=== PATIENT | female | born 1950 | race Caucasian/White ===

== ENCOUNTER 2020-04-19 09:14 | Inpatient (IN) | payer MEDICARE, SELFPAY ==
[2020-04-19] VITALS (9 sets, daily range): BP systolic 136–179; BP diastolic 72–99; PULSE 48–112; RESP 16–23; TEMP 36.1–36.8; O2SAT 96–98; BMI 31.6
--- NOTE | 2020-04-19 10:09 | ED.EXTPRO ---
HPI - Extremity Problem General Chief complaint: Extremity Problem,Nontraumatic Stated complaint: hit funny bone/hand not working Time Seen by Provider: 04/19/20 09:59 Source: patient Mode of arrival: Family Vehicle Limitations: no limitations History of Present Illness HPI Narrative: Patient is a 69-year-old female who has noticed some tingling in her left hand which started last evening. She says it feels like she hit her funny bone but she did not hit her funny bone and she had some tingling on left side of her face last night as well. This morning it remains. She has also noticed that she cannot hold small objects in her hand but she does have good strength. She denies any other weakness. She says that she may have a history of mini strokes in her 20s that that was thought to be due to control. Related Data Home Medications Medication Instructions Recorded Confirmed atorvastatin 20 mg PO BEDTIME 04/19/20 04/19/20 losartan 50 mg PO BID 04/19/20 04/19/20 Allergies Allergy/AdvReac Type Severity Reaction Status Date / Time lisinopril [LISINOPRIL] AdvReac Mild COUGH Verified 04/19/20 09:30 Review of Systems Review of Systems Narrative: GENERAL: Denies chills, fatigue, malaise, fever, sweats, travel HEENT: Denies sinus pain, ear pain, sore throat, difficulty swallowing, neck pain RESPIRATORY: Denies dyspnea, cough, wheezing, hemoptysis, sputum. CARDIOVASCULAR: Denies chest pain, palpitations, orthopnea, edema GASTROINTESTINAL: Denies nausea, vomiting, abdominal pain, diarrhea, constipation, melena. : Denies dysuria, frequency, incontinence, hematuria, urinary retention, flank pain. MUSCULOSKELETAL: Denies weakness, joint pain, or bony pain SKIN: No rash, no erythema, no pruritus NEUROLOGIC: See HPI PSYCHIATRIC: No concerning psychosocial issues. 12 point review of systems is negative except for those stated above and HPI Patient History Medical History Foot drop, left foot (Acute) Surgical History Hx of appendectomy (Acute) Social History household members: spouse Smoking Status: Never smoker Smoking Status: Never smoker alcohol intake frequency: a few times a week Alcohol type: beer and wine Substance Use Type: does not use Exam Initial Vital Signs Initial Vital Signs: Vital Signs Temperature 98.3 F 04/19/20 09:25 Pulse Rate 61 04/19/20 09:25 Respiratory Rate 18 04/19/20 09:25 Blood Pressure 179/83 H 04/19/20 09:25 Pulse Oximetry 97 04/19/20 09:25 GENERAL: Well-appearing, well-nourished and in no acute distress. HEENT: Head atraumatic,EOMI, pupils reactive, face symmetric, moist mucous membranes CARDIOVASCULAR: Regular rate and rhythm without murmurs, rubs or gallops. RESPIRATORY: Breath sounds equal bilaterally, no wheezes rales or rhonchi. ABDOMEN: Soft, nontender. Normoactive bowel sounds all 4 quadrants. No guarding or rebound. EXTREMITIES: Normal range of motion, no clubbing or edema. Neurovascularly intact NEUROLOGICAL: Alert and oriented x4.Normal gait and speech. Cranial nerves II through XII grossly intact. Good [id number], good [id number], strength equal bilaterally, no dysarthria or aphasia, sensation in tact to soft touch bilaterally, no visual changes, no facial droop she is unable to hold a pen appropriately in her left hand. 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 Scores NIH Stroke Scale Level of Conciousness: Alert, keenly responsive Ask month/age: Answers both questions correctly. Open/close eyes, close hand: Performs both tasks correctly Best gaze horizontal: Normal Visual mccormick: No visual loss Facial palsy: Normal symetrical movement Left arm drift: No drift for full 10 sec Right arm drift: No drift for full 10 sec Left leg drift: No drift for full 10 sec Right leg drift: No drift for full 10 sec Limb ataxia: Absent Sensory on face/arms/legs: Normal, no sensory loss Best language: No aphasia, normal Dysarthria: Normal Extinction or inattention: No abnormality Total NIH Stroke scale score: 0 Course Orders Ordered: ED Orders 04/19/20 10:07 EKG-12 Lead Stat 04/19/20 10:15 CT head/brain wo con Stat 04/19/20 10:37 Complete Blood Count AUTO DIFF Stat Comprehensive Metabolic Panel Stat Partial Thromboplastin Time Stat Prothrombin Time INR Stat TSH w/ Reflex to FT4 Stat Troponin & CK Cardiac Panel Stat 04/19/20 11:02 EKG-12 Lead Stat 04/19/20 11:19 Urinalysis and Microscopic Stat 04/19/20 11:50 Urine Drug Screen, Rapid Stat 04/19/20 12:48 Consult to Discharge Planning Routine Consult to Occupational Therapy Evaluate & Treat Consult to Physical Therapy Evaluate & Treat Consult to Speech Therapy Evaluate & Treat MR stroke Stat Education, smoking cessation ONGOING 04/20/20 05:00 Hemoglobin A1C% w Est Avg Glu Routine Lipid Panel Routine Acetaminophen (Tylenol) 650 mg PO Q6HR PRN PRN Reason: Fever Apixaban (Eliquis) 5 mg PO BID EARL Atorvastatin Calcium (Lipitor) 40 mg PO BEDTIME EARL Sodium Chloride (Normal Saline 0.9%) 1,000 mls @ 150 mls/hr IV CONT EARL Last Infusion: 04/19/20 12:15 Dose: 0 mls/hr Documented by: Admin: 04/19/20 10:48 Dose: 150 mls/hr Documented by: JAVIER Discontinued Medications Aspirin (Aspirin Chew) 324 mg PO NOW ONE Stop: 04/19/20 10:58 Last Admin: 04/19/20 11:02 Dose: 324 mg Documented by: CONSTANTINEONETessa Vital Signs Vital signs: Vital Signs - 8 hr 04/19/20 09:25 04/19/20 11:00 04/19/20 11:23 Temperature 98.3 F Pulse Rate 61 112 H 48 L Respiratory Rate 18 19 20 Blood Pressure 179/83 H 177/78 H Pulse Oximetry 97 97 97 04/19/20 11:31 Temperature Pulse Rate 55 L Respiratory Rate 23 Blood Pressure 162/76 H Pulse Oximetry 97 MDM - Extremity (Nontraumatic) Lab Data Result diagrams: 04/19/20 10:37 04/19/20 10:37 Labs: Lab Results 04/19/20 04/19/20 04/19/20 Range/Units 10:37 10:37 10:37 WBC 7.5 (4.5-11.0) X10^3/uL RBC 4.57 (4.0-5.2) X10^6/uL Hgb 13.3 (12.0-16.0) g/dL Hct 40.3 (36-46) % MCV 88.3 (80-100) fL MCH 29.0 (26-34) PG MCHC 32.9 (30-36) % RDW 14.2 (11.6-14.8) % Plt Count 186 (150-400) X10^3/uL Neut % (Auto) 62.9 (50-75) % Lymph % (Auto) 27.4 (25-40) % Hickman % (Auto) 7.7 (3-14) % Eos % (Auto) 1.2 L (2-4) % Baso % (Auto) 0.8 (0-2) % Neut # (Auto) 4800 (0504-4636) /uL Lymph # (Auto) 2100 (1467-2123) /uL Hickman # (Auto) 600 (0-900) /uL Eos # (Auto) 100 (0-450) /uL Baso # (Auto) 100 (0-100) /uL PT 10.6 (10.1-12.7) SECONDS INR 0.9 (0.9-1.3) APTT 29 (26.4-36.2) SECONDS Sodium 139 (137-145) mmol/L Potassium 4.7 (3.4-5.1) mmol/L Chloride 109 H (98-107) mmol/L Carbon Dioxide 26 (22-32) mmol/L BUN 25 H (7-17) mg/dL Creatinine 0.90 (0.52-1.04) mg/dL Estimated GFR > 60.0 (>60) mL/min BUN/Creatinine Ratio 27.8 H (6-22) Glucose 98 (80-110) mg/dL Calcium 9.6 (8.4-10.2) mg/dL Total Bilirubin 0.3 (0.2-1.3) mg/dL AST 41 H (14-36) IU/L ALT 58 H (<35) IU/L Alkaline Phosphatase 74 (38-126) U/L Total Creatine Kinase 160 H (30-135) U/L CK-MB (CK-2) 3.55 H (<2.37) ng/mL CK-MB (CK-2) Rel Index 2.2 (1.5-5.0) % Troponin I < 0.012 (0.01-0.034) ng/mL Total Protein 6.9 (6.3-8.2) g/dL Albumin 4.1 (3.5-5.0) g/dL Globulin 2.8 (1.7-4.1) g/dL Albumin/Globulin Ratio 1.5 (1.0-2.8) TSH (0.47-4.68) uIU/mL Free T4 (0.78-2.19) ng/dL Urine Color Urine Appearance Urine pH (4.5-8.0) Ur Specific [place] (1.000-1.035) Urine Protein (Negative) Urine Glucose (UA) (Negative) g/dL Urine Ketones (NEGATIVE) Urine Occult Blood (Negative) Urine Nitrate (Negative) Urine Bilirubin (NEGATIVE) Urine Urobilinogen (0.2) E.U./dL Ur Leukocyte Esterase (NEGATIVE) Urine RBC (0-5/HPF) Urine WBC (0-5/HPF) Ur Squamous Epith Cells (0-5/HPF) Urine Bacteria (None) Ur Culture Indicated? 04/19/20 04/19/20 Range/Units 10:37 11:19 WBC (4.5-11.0) X10^3/uL RBC (4.0-5.2) X10^6/uL Hgb (12.0-16.0) g/dL Hct (36-46) % MCV (80-100) fL MCH (26-34) PG MCHC (30-36) % RDW (11.6-14.8) % Plt Count (150-400) X10^3/uL Neut % (Auto) (50-75) % Lymph % (Auto) (25-40) % Hickman % (Auto) (3-14) % Eos % (Auto) (2-4) % Baso % (Auto) (0-2) % Neut # (Auto) (0613-1664) /uL Lymph # (Auto) (6121-3297) /uL Hickman # (Auto) (0-900) /uL Eos # (Auto) (0-450) /uL Baso # (Auto) (0-100) /uL PT (10.1-12.7) SECONDS INR (0.9-1.3) APTT (26.4-36.2) SECONDS Sodium (137-145) mmol/L Potassium (3.4-5.1) mmol/L Chloride (98-107) mmol/L Carbon Dioxide (22-32) mmol/L BUN (7-17) mg/dL Creatinine (0.52-1.04) mg/dL Estimated GFR (>60) mL/min BUN/Creatinine Ratio (6-22) Glucose (80-110) mg/dL Calcium (8.4-10.2) mg/dL Total Bilirubin (0.2-1.3) mg/dL AST (14-36) IU/L ALT (<35) IU/L Alkaline Phosphatase (38-126) U/L Total Creatine Kinase (30-135) U/L CK-MB (CK-2) (<2.37) ng/mL CK-MB (CK-2) Rel Index (1.5-5.0) % Troponin I (0.01-0.034) ng/mL Total Protein (6.3-8.2) g/dL Albumin (3.5-5.0) g/dL Globulin (1.7-4.1) g/dL Albumin/Globulin Ratio (1.0-2.8) TSH 0.41 L (0.47-4.68) uIU/mL Free T4 0.80 (0.78-2.19) ng/dL Urine Color Straw Urine Appearance Clear Urine pH 6.5 (4.5-8.0) Ur Specific [place] <=1.005 (1.000-1.035) Urine Protein Negative (Negative) Urine Glucose (UA) Negative (Negative) g/dL Urine Ketones Negative (NEGATIVE) Urine Occult Blood Negative (Negative) Urine Nitrate Negative (Negative) Urine Bilirubin Negative (NEGATIVE) Urine Urobilinogen 0.2 (0.2) E.U./dL Ur Leukocyte Esterase Negative (NEGATIVE) Urine RBC 0-1/hpf (0-5/HPF) Urine WBC 0-1/hpf (0-5/HPF) Ur Squamous Epith Cells 0-1 /hpf (0-5/HPF) Urine Bacteria Few (2-10) H (None) Ur Culture Indicated? Cult not indicated Imaging Data CT scan - head: Radiologist's Impression: PROCEDURE: CT HEAD/BRAIN WO CON INDICATIONS: left hand weakness TECHNIQUE: Noncontrast 4.5 mm thick angled axial sections acquired from the foramen magnum to the vertex, with coronal and sagittal reformats. For radiation dose reduction, the following was used: automated exposure control, adjustment of mA and/or kV according to patient size. COMPARISON: None. FINDINGS: Image quality: Diagnostic. CSF spaces: Basal cisterns are patent. No extra-axial fluid collections. Ventricles are normal in size and shape. Brain: No midline shift. No intracranial masses or hemorrhage. Marley-white matter interface is normal. There are areas of low-attenuation within the periventricular white matter of the supratentorial brain. Skull and face: Calvarium and visualized facial bones are intact, without suspicious lesions. Sinuses: Mild mucosal thickening involving the left maxillary sinus is present. Otherwise, the imaged paranasal sinuses and mastoid air cells are clear. IMPRESSION: 1. No acute intracranial hemorrhage. 2. Mild white matter changes are more prominent on the right. The need for better characterisation utilizing MRI may be determined clinically. Dictated by: Deny Schreiber M.D. on 04/19/2020 at 9:29 Approved by: Deny Schreiber M.D. on 04/19/2020 at 9:30 ECG Data Attestation EKG: I personally reviewed and interpreted this ECG as follows: Prior ECG tracings: not available for review Interpretation: EKG 1. Normal sinus rhythm rate 57 p.r. interval 178 QRS [address] changes EKG 2. Atrial fibrillation rate 127 MDM Narrative Medical decision making narrative: The patient initially was normal sinus rhythm but suddenly went into AFib while in the emergency department. He is completely asymptomatic. She does have obvious weakness of that left hand. I suspect that patient did have a stroke last evening. She does not meet tPA criteria she is out of the window, she has no large vessel occlusion signs. At this point patient is given aspirin and will be admitted Dr. scales updated on the patient's symptoms and test results agrees with observation Discharge Plan Departure Patient Disposition: Admitted as Observation Clinical Impression: CVA (cerebral vascular accident) Qualifiers: CVA mechanism: unspecified Qualified Code(s): I63.9 - Cerebral infarction, unspecified Atrial fibrillation Qualifiers: Atrial fibrillation type: unspecified Qualified Code(s): I48.91 - Unspecified atrial fibrillation Discharge Date/Time: 04/19/20 12:14 Admit Date/Time: 04/19/20 11:33 Admit Provider: Marjorie Kelly
--- NOTE | 2020-04-19 10:15 | DI.CT.S_ITS ---
PROCEDURE: CT HEAD/BRAIN WO CON INDICATIONS: left hand weakness TECHNIQUE: Noncontrast 4.5 mm thick angled axial sections acquired from the foramen magnum to the vertex, with coronal and sagittal reformats. For radiation dose reduction, the following was used: automated exposure control, adjustment of mA and/or kV according to patient size. COMPARISON: None. FINDINGS: Image quality: Diagnostic. CSF spaces: Basal cisterns are patent. No extra-axial fluid collections. Ventricles are normal in size and shape. Brain: No midline shift. No intracranial masses or hemorrhage. Marley-white matter interface is normal. There are areas of low-attenuation within the periventricular white matter of the supratentorial brain. Skull and face: Calvarium and visualized facial bones are intact, without suspicious lesions. Sinuses: Mild mucosal thickening involving the left maxillary sinus is present. Otherwise, the imaged paranasal sinuses and mastoid air cells are clear. IMPRESSION: 1. No acute intracranial hemorrhage. 2. Mild white matter changes are more prominent on the right. The need for better characterisation utilizing MRI may be determined clinically. Dictated by: Deny Schreiber M.D. on 04/19/2020 at 9:29 Approved by: Deny Schreiber M.D. on 04/19/2020 at 9:30
[2020-04-19 10:46] LABS: Add Manual Diff / Slide Review NO; Basophils Absolute Auto 100 /uL (0-100); Basophils Percent Auto 0.8 % (0-2); Eosinophils Absolute Auto 100 /uL (0-450); Eosinophils Percent Auto 1.2 % (2-4); Hematocrit 40.3 % (36-46); Hemoglobin 13.3 g/dL (12.0-16.0); Lymphocytes Absolute Auto 2100 /uL (1100-4500); Lymphocytes Percent Auto 27.4 % (25-40); Mean Corpuscular HGB Conc 32.9 % (30-36); Mean Corpuscular Volume 88.3 fL (80-100); Monocytes Absolute Auto 600 /uL (0-900); Monocytes Percent Auto 7.7 % (3-14); Neutrophils Absolute Auto 4800 /uL (1500-7000); Neutrophils Percent Auto 62.9 % (50-75); Platelet Count 186 X10^3/uL (150-400); Red Blood Cell Count 4.57 X10^6/uL (4.0-5.2); Red Cell Distribution Width 14.2 % (11.6-14.8); White Blood Cell Count 7.5 X10^3/uL (4.5-11.0)
[2020-04-19] MEDS: SODIUM CHLORIDE 0.9% 1,000 ML 150 ML IV (10:48)
[2020-04-19 10:53] LABS: INR 0.9 (0.9-1.3); Prothrombin Time 10.6 SECONDS (10.1-12.7)
[2020-04-19 10:56] LABS: PTT Partial Thromboplastin Tim 29 SECONDS (26.4-36.2)
[2020-04-19 10:57] LABS: Alanine Aminotransferase 58 IU/L (<35); Albumin 4.1 g/dL (3.5-5.0); Albumin Globulin Ratio 1.5 (1.0-2.8); Alkaline Phosphatase 74 U/L (38-126); Aspartate Aminotransferase 41 IU/L (14-36); BUN Creatinine Ratio 27.8 (6-22); Bilirubin Total 0.3 mg/dL (0.2-1.3); Blood Urea Nitrogen 25 mg/dL (7-17); Calcium 9.6 mg/dL (8.4-10.2); Carbon Dioxide 26 mmol/L (22-32); Chloride 109 mmol/L (98-107); Creatine Kinase 160 U/L (30-135); Estimated Glomerular Filt Rate > 60.0 mL/min (>60); Globulin 2.8 g/dL (1.7-4.1); Glucose 98 mg/dL (80-110); Potassium 4.7 mmol/L (3.4-5.1); Sodium 139 mmol/L (137-145); Total Protein 6.9 g/dL (6.3-8.2)
--- NOTE | 2020-04-19 11:01 | PC.NURSE ---
pt rhythm changed from SR to afib. Dr. Martinez aware and repeat EKG done
[2020-04-19] MEDS: ASPIRIN 81 MG CHEW TAB 324 MG PO (11:02)
[2020-04-19 11:09] LABS: Troponin I < 0.012 ng/mL (0.01-0.034)
[2020-04-19 11:13] LABS: CKMB % Relative Index 2.2 % (1.5-5.0); Creatine Kinase MB 3.55 ng/mL (<2.37); HEMOLYSIS 17 (0-50)
[2020-04-19 11:48] LABS: Appearance Urine UA CLEAR; Bilirubin Urine UA NEGATIVE (NEGATIVE); Glucose Urine UA NEGATIVE (Negative); Ketones Urine UA NEGATIVE (NEGATIVE); Leukocyte Esterase Urine UA NEGATIVE (NEGATIVE); Nitrite Urine UA NEGATIVE (Negative); Occult Blood Urine UA NEGATIVE (Negative); Protein Urine UA NEGATIVE (Negative); Specific Gravity Urine UA <=1.005 (1.000-1.035); Urobilinogen Urine UA 0.2 E.U./dL (0.2)
[2020-04-19 11:50] LABS: pH Urine UA 6.5 (4.5-8.0)
[2020-04-19 11:59] LABS: Bacteria Urine Few (2-10); Color Urine UA Straw; Culture Indicated Urine Cult Not Indicated; RBC Urine 0-1/HPF (0-5/HPF); Squamous Epithelial Cell Urine 0-1 /HPF (0-5/HPF); WBC Urine 0-1/HPF (0-5/HPF)
[2020-04-19 12:05] LABS: UR Morphine/Opiate cutoff 300 Negative (Negative); Ur Creatinine Normal (Normal); Ur Specific Gravity Normal (Normal); Urine Amphetamines Negative (Negative); Urine Barbiturates Negative (Negative); Urine Benzodiazepines Negative (Negative); Urine Cocaine Negative (Negative); Urine MDMA Negative (Negative); Urine Methadone Negative (Negative); Urine Methamphetamines Negative (Negative); Urine Oxycodone Negative (Negative); Urine Phencyclidine Negative (Negative); Urine Tetrahydrocannabinol Negative (Negative); Urine Tricyclic Antidepressant Negative (Negative); Urine pH Normal (Normal)
--- NOTE | 2020-04-19 12:48 | DI.MRI.S_ITS ---
PROCEDURE: MR STROKE Pre- and post-contrast brain MRI, non-contrast brain MR angiogram, pre- and postcontrast neck MR angiogram INDICATIONS: Left sided deficit, CVA TECHNIQUE: Brain: Noncontrast axial T1 spin echo, axial T2 fast spin echo, sagittal and axial FLAIR, coronal T2 fast spin echo, axial gradient echo, axial diffusion and ADC through the brain. After the administration of contrast, axial 3D VIBE of the cranial vasculature and brain. Brain MRA: Non-contrast 3-D time of flight MR angiogram, with multiple vchehhg-hflbnqsuh-pjlzfojcdm (MIP) reformats performed. Neck MRA: Axial and sagittal TruFISP through the neck. Coronal dynamic MR angiogram during administration of contrast in the arterial and venous phases, with 3-dimenstional sfzuogm-jinqjbipq-bxkcchjmai (MIP) reformats constructed from subtraction images. COMPARISON: None. FINDINGS: Image quality: Degraded by patient motion artifact. BRAIN: CSF spaces: Ventricles are normal in size and shape. Basal cisterns are patent. No extra-axial fluid collections. Brain: No intracranial bleeds or mass effects. Marley-white matter interface is normal. There is mild, diffuse cerebral volume loss. There are moderate periventricular, subcortical and subinsular white matter chronic microvascular ischemic changes. Cluster of small foci of restricted diffusion noted in the posterior right frontal lobe compatible with acute lacunar infarcts. Brainstem appears normal. Normal intravascular flow voids are present. No abnormal intracranial enhancement. Skull and face: Calvarial marrow signal is normal. Orbits appear normal. Sinuses: Mild mucosal thickening noted in the left maxillary sinus. The mastoids are clear. BRAIN MR ANGIOGRAM: Anterior circulation: Intracranial internal carotid arteries are normal in size and enhancement. The flow within the paired anterior cerebral arteries is normal and symmetric. The flow within the middle cerebral arteries is normal and symmetric. The anterior communicating artery is seen. No stenoses, occlusions, or aneurysms. Posterior circulation: The visualized portions of the vertebral arteries demonstrate normal caliber, and join to form a normal appearing basilar artery. The flow within the posterior cerebral arteries is normal and symmetric. No stenoses, occlusions, or aneurysms. NECK MR ANGIOGRAM: Carotids: Great vessels demonstrate a conventional anatomy as they arise from the aortic arch. The origins of the common carotid arteries appear patent. The calibers and courses of both common carotid arteries are normal. The bifurcation regions appear normal bilaterally. The internal carotid arteries demonstrate normal course and caliber. Posterior circulation: The origins of the vertebral arteries appear patent. More superior portions of both vertebral arteries demonstrate normal course and caliber, and join to form a normal appearing basilar artery. Miscellaneous: Subclavian arteries appear patent. Pre-contrast images through the neck show no soft tissue abnormalities. IMPRESSION: BRAIN MRI: 1. Small cluster of acute lacunar infarcts in the posterior right frontal lobe. 2. No abnormal intracranial mass or mass effect. 3. No suspicious postcontrast enhancement. 4. No intracranial hemorrhage. 5. Mild, diffuse cerebral volume loss. 6. Moderate periventricular, subcortical and subinsular white matter chronic microvascular ischemic change. BRAIN MR ANGIOGRAM: Negative examination. NECK MR ANGIOGRAM: Negative examination. Dictated by: Emelyn Chang MD, PhD on 04/19/2020 at 16:01 Approved by: Emelyn Chang MD, PhD on 04/19/2020 at 16:09
--- NOTE | 2020-04-19 13:23 | SLP.IPNOTE ---
ORDER CONTROL CLERK BLOOD BANK entered the room at 1:15 to assess pt's swallow, speech, and cognition. Pt was sitting upright in bed and had just gotten off the phone. Pt's speech and oral muscular structure appear WNL at this time. No face droop or slurring of speech noted. Pt was 100% intelligible at the conversational level. ORDER CONTROL CLERK BLOOD BANK gave the pt thin liquids and regular, dry texture solids. Pt did not show any overt s/sx of aspiration. No wet/gurgly voice noted, no immediate or delayed cough/throat clearing. Pt reported she did not feel her speech or swallowing abilities were impacted. Pt was able to recall locations and answer all questions appropriately. Continued ST services are not recommended as there is no impact on the pt's speech, swallowing, or cognition at this time. If there are any changes that do occur, further assessment may be warranted. Pt did not have any further questions or concerns for the ORDER CONTROL CLERK BLOOD BANK. Shyla Perez M.A., [facility]-ORDER CONTROL CLERK BLOOD BANK
[2020-04-19 13:33] LABS: COVID19 -Nasal RAPID Negative (Negative)
[2020-04-19 13:37] LABS: TSH w/ Reflex to FT4 0.41 uIU/mL (0.47-4.68)
--- NOTE | 2020-04-19 15:34 | PC.NURSE ---
Addendum entered by Cristy Ho R.N. 04/19/20 15:36: pt left room for MRI at 1500. No bedside report. Original Note: AM shift. pt AO and receptive to care. Arrived from ER at 1230. SBA to BR. Right AC infusing NS at 150/hr. Tele- sinus henrietta and afib, no history of afib. Speech cleared patient at 1300. MRI and labs ordered. COVID test completed in ER before transfer. When I called lab at 1330 for results, lab did not cone picker.
--- NOTE | 2020-04-19 16:55 | PM.HP.1 ---
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 The patient reports that yesterday evening she thought she hit her elbow on the table and her funny bone causing numbness and tingling of her left arm and hand. She then noticed her left face also had numbness and tingling with slurring of words which she compares to receiving Novocain at the dentist. The numbness and tingling of her face quickly resolved. She she reports that she then went to bed hoping that this would go away overnight. She awoke with persistent numbness and tingling of left arm and hand with decreased machine assembler supervisor strength. She has no persistent numbness or tingling of her face or slurred speech. She has no other symptoms and denies headache, chest pain, shortness of breath, nausea, vomiting, fever, chills, dysuria, diarrhea or constipation. She is visiting from [place] and drove here with her and RV. She denies any lower extremity swelling or pain. In the emergency department, the patient went to atrial fibrillation for which she endorses occasional fluttering in her chest especially when she drinks wine to the extent that she has cut back and will only have 1 glass at a time. She has no history of atrial fibrillation and is not on blood thinner. She is admitted observation for acute stroke. Patient History Medical History Foot drop, left foot (Acute) Hyperlipidemia (Acute) Hypertension (Acute) Surgical History Hx of appendectomy (Acute) Family & Social History Family History Mother Colon cancer Father Stroke Social History: household members spouse Prior Living Arrangements RV Safety & Behavioral: Feels Safe in Current Yes Environment Been Physically Hurt or No Threatened By a Person Suicidal Ideation Description None Suicide Plan Description No Plan Tobacco & Substance use: Smoking Status Never smoker alcohol intake frequency 1 glass of wine or 1 beer a few times a week Substance Use Type Does not use Meds Home Medications and Allergies Home Medications Medication Instructions Recorded Confirmed Type atorvastatin 20 mg PO BEDTIME 04/19/20 04/19/20 History losartan 50 mg PO BID 04/19/20 04/19/20 History Allergies Allergy/AdvReac Type Severity Reaction Status Date / Time lisinopril [LISINOPRIL] AdvReac Mild COUGH Verified 04/19/20 09:30 Review of Systems Review of Systems Narrative: A 10 system comprehensive review of systems was conducted with the patient and found to be negative except as above in the History of Present Illness. Exam Vital Signs (past 8 hours): - 04/19/20 09:25 04/19/20 11:00 04/19/20 11:23 Temperature 98.3 F Pulse Rate 61 112 H 48 L Respiratory Rate 18 19 20 Blood Pressure 179/83 H 177/78 H Pulse Oximetry 97 97 97 04/19/20 11:31 04/19/20 11:58 04/19/20 12:00 Temperature Pulse Rate 55 L 53 L 51 L Respiratory Rate 23 23 17 Blood Pressure 162/76 H 176/74 H 158/72 H Pulse Oximetry 97 98 96 04/19/20 16:00 Temperature 98.0 F Pulse Rate 61 Respiratory Rate 18 Blood Pressure 146/99 H Pulse Oximetry 97 Oxygen Delivery Method Room Air Narrative Exam Narrative: General: Older female sitting in bed and in no acute distress, well-developed, well-nourished, appropriately interactive. HEENT: Normocephalic, atraumatic. External ears without defect. Pupils equal, round, and reactive to light. Anicteric sclerae, moist conjunctivae, and no lid lag. Oropharynx free of erythema and cobble stoning with moist mucosa. Neck: Supple with full range of motion. No jugular venous distension. No bruits. No lymphadenopathy or thyromegaly. Cardiovascular: Irregularly irregular without murmurs, rubs, or gallops appreciated. Pulmonary: Clear to auscultation bilaterally without crackles, wheezes, or rhonchi. Normal respiratory effort with no use of accessory muscles. Abdomen: Soft, bowel sounds present, nontender, nondistended. No hepatosplenomegaly or masses appreciated. Extremities: No clubbing, cyanosis, or edema. Skin: Normal temperature, turgor, and texture; no rash, ulcers, or subcutaneous nodules appreciated. Neurological: Cranial nerves grossly intact. Normal muscle strength, tone, and bulk in all 4 extremities +4/5. Left machine assembler supervisor decreased and dexterity impaired. Reflexes, coordination, and sensory function within normal limits. Normal cerebellar function with [id number] and [id number]. No known gait impairment. Psychiatric: Normal mood and affect. Alert and oriented to person, place, and time. Objective Labs Result Diagrams: 04/19/20 10:37 04/19/20 10:37 Labs: Laboratory Results - last 24 hr 04/19/20 04/19/20 04/19/20 10:37 10:37 10:37 WBC 7.5 RBC 4.57 Hgb 13.3 Hct 40.3 MCV 88.3 MCH 29.0 MCHC 32.9 RDW 14.2 Plt Count 186 Neut % (Auto) 62.9 Lymph % (Auto) 27.4 Hubbard % (Auto) 7.7 Eos % (Auto) 1.2 L Baso % (Auto) 0.8 Neut # (Auto) 4800 Lymph # (Auto) 2100 Hubbard # (Auto) 600 Eos # (Auto) 100 Baso # (Auto) 100 PT 10.6 INR 0.9 APTT 29 Sodium 139 Potassium 4.7 Chloride 109 H Carbon Dioxide 26 BUN 25 H Creatinine 0.90 Estimated GFR > 60.0 BUN/Creatinine Ratio 27.8 H Glucose 98 Calcium 9.6 Total Bilirubin 0.3 AST 41 H ALT 58 H Alkaline Phosphatase 74 Total Creatine Kinase 160 H CK-MB (CK-2) 3.55 H CK-MB (CK-2) Rel Index 2.2 Troponin I < 0.012 Total Protein 6.9 Albumin 4.1 Globulin 2.8 Albumin/Globulin Ratio 1.5 TSH Free T4 Urine Color Urine Appearance Urine pH Ur Specific Sewell Urine Protein Urine Glucose (UA) Urine Ketones Urine Occult Blood Urine Nitrate Urine Bilirubin Urine Urobilinogen Ur Leukocyte Esterase Urine RBC Urine WBC Ur Squamous Epith Cells Urine Bacteria Ur Culture Indicated? U Opiates 300ng/mL cut Ur Oxycodone Screen Urine Methadone Screen Ur Barbiturates Screen U Tricyclic Antidepress Ur Phencyclidine Scrn Ur Amphetamines Screen U Methamphetamines Scrn Ur MDMA Scrn (Ecstasy) U Benzodiazepines Scrn Urine Cocaine Screen U Marijuana (THC) Screen COVID-19 PCR 04/19/20 04/19/20 04/19/20 10:37 11:19 11:50 WBC RBC Hgb Hct MCV MCH MCHC RDW Plt Count Neut % (Auto) Lymph % (Auto) Hubbard % (Auto) Eos % (Auto) Baso % (Auto) Neut # (Auto) Lymph # (Auto) Hubbard # (Auto) Eos # (Auto) Baso # (Auto) PT INR APTT Sodium Potassium Chloride Carbon Dioxide BUN Creatinine Estimated GFR BUN/Creatinine Ratio Glucose Calcium Total Bilirubin AST ALT Alkaline Phosphatase Total Creatine Kinase CK-MB (CK-2) CK-MB (CK-2) Rel Index Troponin I Total Protein Albumin Globulin Albumin/Globulin Ratio TSH 0.41 L Free T4 0.80 Urine Color Straw Urine Appearance Clear Urine pH 6.5 Ur Specific Sewell <=1.005 Urine Protein Negative Urine Glucose (UA) Negative Urine Ketones Negative Urine Occult Blood Negative Urine Nitrate Negative Urine Bilirubin Negative Urine Urobilinogen 0.2 Ur Leukocyte Esterase Negative Urine RBC 0-1/hpf Urine WBC 0-1/hpf Ur Squamous Epith Cells 0-1 /hpf Urine Bacteria Few (2-10) H Ur Culture Indicated? Cult not indicated U Opiates 300ng/mL cut Negative Ur Oxycodone Screen Negative Urine Methadone Screen Negative Ur Barbiturates Screen Negative U Tricyclic Antidepress Negative Ur Phencyclidine Scrn Negative Ur Amphetamines Screen Negative U Methamphetamines Scrn Negative Ur MDMA Scrn (Ecstasy) Negative U Benzodiazepines Scrn Negative Urine Cocaine Screen Negative U Marijuana (THC) Screen Negative COVID-19 PCR 04/19/20 12:20 WBC RBC Hgb Hct MCV MCH MCHC RDW Plt Count Neut % (Auto) Lymph % (Auto) Hubbard % (Auto) Eos % (Auto) Baso % (Auto) Neut # (Auto) Lymph # (Auto) Hubbard # (Auto) Eos # (Auto) Baso # (Auto) PT INR APTT Sodium Potassium Chloride Carbon Dioxide BUN Creatinine Estimated GFR BUN/Creatinine Ratio Glucose Calcium Total Bilirubin AST ALT Alkaline Phosphatase Total Creatine Kinase CK-MB (CK-2) CK-MB (CK-2) Rel Index Troponin I Total Protein Albumin Globulin Albumin/Globulin Ratio TSH Free T4 Urine Color Urine Appearance Urine pH Ur Specific Sewell Urine Protein Urine Glucose (UA) Urine Ketones Urine Occult Blood Urine Nitrate Urine Bilirubin Urine Urobilinogen Ur Leukocyte Esterase Urine RBC Urine WBC Ur Squamous Epith Cells Urine Bacteria Ur Culture Indicated? U Opiates 300ng/mL cut Ur Oxycodone Screen Urine Methadone Screen Ur Barbiturates Screen U Tricyclic Antidepress Ur Phencyclidine Scrn Ur Amphetamines Screen U Methamphetamines Scrn Ur MDMA Scrn (Ecstasy) U Benzodiazepines Scrn Urine Cocaine Screen U Marijuana (THC) Screen COVID-19 PCR Negative Assessment & Plan Assessment & Plan narrative: Amira Shukla is a 69-year-old female with a past medical history significant for hypertension, hyperlipidemia and left footdrop who presented to the ED with numbness and tingling of left hand and decreased machine assembler supervisor strength. 1. Acute CVA, present on admission. Active. -Patient presented with persistent left arm and hand paresthesia numbness and tingling with decreased machine assembler supervisor strength. Patient has remote history 40+ years ago of left footdrop from unknown cause but possibly CVA. -Cardiovascular risk factors include: hypertension, hyperlipidemia and family history. -NIH score 0. Continue to monitor neurological status frequently. -Initial EKG demonstrated sinus rhythm/bradycardia and repeat EKG demonstrated atrial fibrillation without acute ischemic changes has as ST elevation or depression. Continue to monitor closely on telemetry. Patient is currently back in sinus rhythm. -Allow for permissive hypertension x 24 hours to optimize cerebral perfusion. Plan to restart home antihypertensive with losartan 50 mg twice daily tomorrow. Ordered labetalol 10 mg IV every 4 hours for SBP > 220 mmHg or DBP > 110 mm Hg. -CT brain without contrast did not demonstrate noted acute intracranial hemorrhage. Noted, mild white matter changes are more prominent on the right. -Ordered MR stroke protocol, pending. -Ordered echocardiogram to rule out embolic source, pending. -Risk stratified with hemoglobin A1c and fasting lipid panel, pending. -Received aspirin 3 in 24 mg x 1. Started Eliquis 5 mg twice daily and continue atorvastatin increased from 20 mg to 40 mg daily at bedtime pending fasting lipid panel for stroke prophylaxis. -Ordered physical, occupational therapy and speech therapies evaluation and treatment, pending. 2. Newly diagnosed paroxysmal atrial fibrillation, present on admission. Active. -Patient presented in sinus rhythm and when to atrial fibrillation while in the ED. Patient endorses intermittent palpitations and a fluttering in her chest over the last 3-4 years. -EKG demonstrated atrial fibrillation without acute ischemic changes such as ST elevation or depression. Continue to monitor closely on telemetry. -Started and continue Eliquis 5 mg twice daily. 3. Hypertension, chronic, present on admission. Stable. -Allow for permissive hypertension x 24 hours to optimize cerebral perfusion. -Continue home losartan 50 mg twice daily starting tomorrow. Ordered labetalol 10 mg IV every 4 hours for SBP > 220 mmHg or DBP > 110 mm Hg. 4. Hyperlipidemia, chronic, present on admission. Presumed stable. -Ordered fasting lipid panel, pending. -Continue atorvastatin increased from 20 mg to 40 mg daily at bedtime pending fasting lipid panel. Code status: DNR/DNI VTE prophylaxis: Meagan SCDs Patient is admitted under observation status with expected length of stay less than 2 midnights due to severity of presenting symptoms, risk of adverse event, and complexity of treatment plan. Quality VTE Deep Vein Thrombosis/Pulmonary Embolism Present on Admission: No
--- NOTE | 2020-04-19 18:03 | PT.IIE ---
Surgical History (Last Reviewed 04/19/20 @ 17:15 by Marjorie Kelly DO) Hx of appendectomy (Acute) Medical History (Last Reviewed 04/19/20 @ 17:15 by Marjorie Kelly DO) Foot drop, left foot (Acute) Hyperlipidemia (Acute) Hypertension (Acute) Physical Therapy Inpatient Evaluation/Re-Eval M1 PT/OT-IP Prior Functional Status Start: 04/19/20 15:01 Freq: NEEDED Status: Active Protocol: Document 04/19/20 17:21 ([facility] Medical Review Prior Functional Status Medical History Reviewed Yes Diet/Fluid Consistency Regular Communication independent Mobility and Gait independent at baseline with mild L foot drop Activities of Daily Living and IADL's independent at baseline Social History Household Members spouse Living Arrangements RV Additional Social History Comment She is visiting from [place] and drove here with her and RV M2 PT-IP Current Condition Start: 04/19/20 15:01 Freq: NEEDED Status: Active Protocol: Document 04/19/20 17:21 (Rec: 04/19/20 18:00 [facility] Physical Therapy Current Condition Current Condition Evaluation Date 04/19/20 Treatment Diagnosis Acute CVA, loss of LUE strength Onset Date 04/18/20 Weight Bearing Status Weight Bearing Status Full Weight Bearing M3 PT-IP Subjective Start: 04/19/20 15:01 Freq: NEEDED Status: Active Protocol: Document 04/19/20 17:21 (Rec: 04/19/20 18:00 [facility] Subjective Physical Therapy Visit Type Type Initial Evaluation Visit Start Time 15:40 Visit Stop Time 15:56 Total Visit Minutes 16 Notes pt's at bedside. 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 Pt showed normal gait but mild L foot drop which is her baseline. Pt was able to sit<> stand independently for neurological assessment. No mobility concern at this point . See neuro assessment from below Gait Assessment Gait Gait Assistance Required: Independent Distance (Feet) 15 Able to Maintain Weight Bearing Status Yes During Gait Assistive Devices Assistive Device None Orthotic/Prosthetic Devices or Brace: No Gait Deviations General Gait Pattern Within Normal Limits PT-Balance Assessment Sitting Balance and Reactions Static Sitting Balance Ability Normal Dynamic Sitting Balance Ability Normal Standing Balance and Reactions Static Standing Balance Ability Normal Dynamic Standing Balance Ability Normal Device Used none M5 PT-IP Objective Assessments Start: 04/19/20 15:01 Freq: NEEDED Status: Active Protocol: Document 04/19/20 17:21 (Rec: 04/19/20 18:00 [id number]) Orientation Orientation/Cognition Level of Alertness Alert Orientation Name,Age,Birthday,Month,Date, Year,Day of Week,Place, Situation Language Function Ability No Deficits Noted Safety Awareness Understands Safety Issues Memory Description No Deficits Noted Gross Range of Motion Upper Extremity ROM Assessment Left Impaired Impairments L shoulder flexion up to 140 degrees, abd up to 120 degrees WFL for elbow, wrist ( close to full range > 1/2) unable to perform full finger abduction and extension (less than 1/2 range) unable to perform finger opposition Lower Extremity ROM Assessment Within Functional Limits Strength Upper Extremity Strength Assessment Left Impaired Shoulder 3-/5 Elbow 4/5 Wrist 3-/5 Hand 2-/5 Lower Extremity Strength Assessment Within Functional Limits Coordination Assessment Gross Coordination Gross Coordination WNL Assessment Finger to Nose Test slower but intact execution Pronation/Supination Test slower but intact execution Foot Tapping Test Normal Performance Heel on Luke Test Normal Performance Coordination Comments coordination seems to be intact but slower in general for LUE d/t weakness and fine motor control Sensation Assessment Sensation Gross Sensation Left UE Impaired Light Touch Impaired Proprioception (Position) Impaired Sensation Description Numbness Comments Sensation Comments report of numbness/ decreased sensation for entire LUE. numbness/ tingling noted on L side of the face Muscle Tone Muscle Tone WNL No Muscle Tone Location Left Upper Extremity Type of Tone Hypotonicity Severity of Tone Mild Other Assessments Other Other Assessments +ve Randolph sign on L no vision field deficits M6 PT-IP Treatment Start: 04/19/20 15:01 Freq: NEEDED Status: Active Protocol: Document 04/19/20 17:21 (Rec: 04/19/20 18:00 [email or web address]) Physical Therapy Treatment Exercises Exercises Shoulder Flexion,Elbow Flexion /Extension,Wrist ROM,Hand ROM Education Education Provided Safety Other Treatments Other Treatment Performed Provided general AROM therex for shoulder, elbow , wrist and fingers M7 PT-IP Assessment and Plan Start: 04/19/20 15:01 Freq: NEEDED Status: Active Protocol: Document 04/19/20 17:21 (Rec: 04/19/20 18:00 [id number]) PT Summary Assessment and Plan Potential Rehabilitation Potential Good Status of Condition at Evaluation Evolving Summary Impairments ROM,Strength,Sensation Assessment Summary This is a low complexity evaluation only for this 69 yo female admitted to for acute CVA. MRI report shows Small cluster of acute lacunar infarcts in the posterior right frontal lobe. Upon assessment, pt's facial droop seems to improve overnight and there's no deficit noted for vision, coordination, balance and LEs involvement. Pt at this point does not have mobility concern. However, impaired sensation noted to light touch and pressure, significant weakness (distal > proximal) and limited fine motor control for LUE, along with positive Randolph sign. Discussed with Dr. Kelly that Pt's current plan is to drive back to [place] and participate outpatient rehab with speech, OT, and PT there. Goals Bed Mobility Goal Independent Transfer Goal Independent Gait Goal Independent Other Goals complete HEP independently Days to Meet Goals 3 Frequency of Treatment Frequency Of Treatment Once a Day Treatment Plan Physical Therapy Treatment Plan Therapeutic Exercise,Discharge Planning,Neuromuscular Re-ed Recommendations To Nursing Amount of Assist Needed Standby Assistance Discharge Recommendations PT Discharge Recommendations Home with Assistance, Outpatient PT Other Discharge Recommendations Pt lives in [place]. Discussed with Dr. Kelly that Pt's current plan is to drive back to [place] and participate outpatient rehab with speech, OT, and PT there. Transportation Needs at Discharge Private Vehicle
[2020-04-19] MEDS: ATORVASTATIN 20 MG TABLET 40 MG PO (20:50)
[2020-04-19] MEDS: APIXABAN 5 MG TABLET PO (20:51)
[2020-04-20 00:20] VITALS: O2SAT 98
[2020-04-20] MEDS: SODIUM CHLORIDE 0.9% 1,000 ML 100 ML IV (00:22)
--- NOTE | 2020-04-20 02:04 | PC.NURSE ---
Pt. called & reported numbness to left thumb & 2nd & 3rd fingers. Able to move her thumb & fingers. Instructed to wiggle her fingers & she reported that my physical therapist told me to used this to exercise my fingers. Using a coban wrap dressing to exercise her left fingers. Re-assessed after 2 minutes after moving her fingers & squeezing the coban wrap, states numbness is going away, don't call & wake up my doctor. Instructed to call nursing staff if numbness to her left fingers felt worse. Will continue to monitor
[2020-04-20 05:56] VITALS: BP 151/90; PULSE 56; RESP 16; TEMP 36.2; O2SAT 99
[2020-04-20 06:04] LABS: Cholesterol 176 mg/dL (140-199); HDL Cholesterol 46 mg/dL (40-60); LDL Cholesterol Calculated 78 mg/dL (<100); Triglycerides 262 mg/dL (35-150)
[2020-04-20 07:00] VITALS: O2SAT 96
--- NOTE | 2020-04-20 07:50 | ST.IPIE ---
Visit Care Team Role Provider Type Heron Jenkins MD Family Provider Non-Staff Specialty: Family Practice Address: [address] [place] [address], [id number] Email: Lissy Martinez DO Emergency Provider Physician Referring Provider Specialty: Emergency Medicine Address: [address] [place] [address], [id number] Email: [email or web address] Marjorie Kelly DO Admit Provider Physician Attending Provider Specialty: Internal Medicine Address: [address] [place] [address], [id number] Email: [email or web address] Past Medical History (Last Reviewed 04/19/20 @ 17:15 by Marjorie Kelly DO) Foot drop, left foot (Acute Medical) Hyperlipidemia (Acute Medical) Hypertension (Acute Medical) ST IP Initial Evaluation Report [facility] Language Evaluation Start: 04/20/20 13:20 Freq: Status: Active Protocol: Document 04/20/20 13:20 TLC (Rec: 04/20/20 13:27 TLC [id number]) Language Evaluation Session Time Visit Start Time 07:50 Visit Stop Time 08:05 Total Visit Minutes 15 Past Medical History Patient History Patient admitted for stroke like symptoms and found to have Small cluster of acute lacunar infarcts in the posterior right frontal lobe. Patient was seen by MATTRESS STRIPPER yesterday and found to be at baseline after informal cognitive, language and swallow eval. MATTRESS STRIPPER following up today to complete cognitive screen. 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 present in room. - Informal Assessment Receptive Language Normal Yes Expressive Language Normal Yes Articulation Normal Yes Assessment Findings Patient scored 20/30 on SLUMS which could suggest neurocognitive disorder. Patient recalled 2 out of 5 objects following a short delay. She lost one point on reverse digit span of 3 numbers. She required prompting to put hour markers on the clock. She answered 2 out of 4 questions correctly about a short story read aloud . Despite these scores, patient reports feeling at baseline for cognition. She manages finances at home and uses pill boxes to take medication. She denies any forgetfulness, but states she has noticed word finding difficulty as she ages. - Receptive Language Yes/No Questions Skill Level WNL Auditory Comprehension Skill Level WNL - Expressive Language Automatic Speech Skill Level WNL Oral Expression Skill Level WNL - Recommendations Recommendations Patient and her are without concerns for cognition at this time. No further speech therapy recommended.
[2020-04-20 08:00] VITALS: BP 160/98; PULSE 62; RESP 16; O2SAT 96
--- NOTE | 2020-04-20 08:45 | PT.IPTN ---
Physical Therapy Treatment Note M2 PT-IP Current Condition Start: 04/19/20 15:01 Freq: NEEDED Status: Active Protocol: Document 04/19/20 17:21 HH (Rec: 04/19/20 18:00 HH [id number]) Physical Therapy Current Condition Current Condition Evaluation Date 04/19/20 Treatment Diagnosis Acute CVA, loss of LUE strength Onset Date 04/18/20 Weight Bearing Status Weight Bearing Status Full Weight Bearing M3 PT-IP Subjective Start: 04/19/20 15:01 Freq: NEEDED Status: Active Protocol: Document 04/20/20 08:35 KS (Rec: 04/20/20 10:25 KS [id number]) Subjective Physical Therapy Visit Type Type Treatment Note Visit Start Time 08:35 Visit Stop Time 08:45 Total Visit Minutes 10 Notes pt's at bedside. Number of COUNTY [employer]ERIFF Visits 1 Physical Therapy Visit Comments Patient Comments Pt agreeable to work w/ therapy. M4 PT-IP Mobility and Gait Start: 04/19/20 15:01 Freq: NEEDED Status: Active Protocol: Document 04/20/20 08:35 KS (Rec: 04/20/20 10:25 KS [id number]) PT-Transfer Assessment Sit to and From Stand Sit to and from Stand Independent Equipment Transfer Assistive Device None,Gait Belt Transfers Transfer Destination Bed Transfer Technique pt ambulated w/o AD Transfer Ability Level of Assist Independent Comments Mobility Comments Pt sitting EOB w/ in room upon arrival from therapy . Pt reported she has been up to use bathroom several times w/o difficulty. Pt states 2 steps to get into RV. Pt independent for sit<>stand, pt ambulated SBA while managing her own IV pole from room to stairs ~40 ft. Pt completed 3 steps w/ step over step and L hand rail SBA. Pt ambulated addtional ~40 ft back to room and returned to bed SBA. Pt left in room w/ all needs in reach. Gait Assessment Gait Gait Assistance Required: Standby Assistance Distance (Feet) 80 Able to Maintain Weight Bearing Status Yes During Gait Assistive Devices Assistive Device None Orthotic/Prosthetic Devices or Brace: No Gait Deviations General Gait Pattern Within Normal Limits,Decreased Feet Clearance Factors Limiting Gait Function Factors Limiting Gait Function Decreased Strength Comments Gait Comments Pt ambulated ~80 ft total while monitoring her ow IV pole SBA w/o AD. Pt demonstrates L foot drop w/ ambulation and states she has had foot drop since she was in her early twenties and it is less noticeable when she is wearing shoes. Stair Climbing Assessment Evaluation Level of Assist On Stairs Standby Assistance Devices Stair Climbing Assistive Devices None,Left Railing Technique/Endurance Stair Climbing Direction Ascend and Descend Stair Climbing Technique Step Over Step Number of Steps Climbed 3 Stair Climbing Set # Repetitions (reps) 1 Comments Stair Climbing Comments Pt ascended/descended 3 steps w/ L hand rail and SBA w/ step over step pattern. Pt demonstrated good balance and safety awarenress when completing stairs. PT-Balance Assessment Sitting Balance and Reactions Static Sitting Balance Ability Normal Dynamic Sitting Balance Ability Normal Standing Balance and Reactions Static Standing Balance Ability Normal Dynamic Standing Balance Ability Normal Device Used none M5 PT-IP Objective Assessments Start: 04/19/20 15:01 Freq: NEEDED Status: Active Protocol: Document 04/19/20 17:21 (Rec: 04/19/20 18:00 [id number]) Orientation Orientation/Cognition Level of Alertness Alert Orientation Name,Age,Birthday,Month,Date, Year,Day of Week,Place, Situation Language Function Ability No Deficits Noted Safety Awareness Understands Safety Issues Memory Description No Deficits Noted Gross Range of Motion Upper Extremity ROM Assessment Left Impaired Impairments L shoulder flexion up to 140 degrees, abd up to 120 degrees WFL for elbow, wrist ( close to full range > 1/2) unable to perform full finger abduction and extension (less than 1/2 range) unable to perform finger opposition Lower Extremity ROM Assessment Within Functional Limits Strength Upper Extremity Strength Assessment Left Impaired Shoulder 3-/5 Elbow 4/5 Wrist 3-/5 Hand 2-/5 Lower Extremity Strength Assessment Within Functional Limits Coordination Assessment Gross Coordination Gross Coordination WNL Assessment Finger to Nose Test slower but intact execution Pronation/Supination Test slower but intact execution Foot Tapping Test Normal Performance Heel on Luke Test Normal Performance Coordination Comments coordination seems to be intact but slower in general for LUE d/t weakness and fine motor control Sensation Assessment Sensation Gross Sensation Left UE Impaired Light Touch Impaired Proprioception (Position) Impaired Sensation Description Numbness Comments Sensation Comments report of numbness/ decreased sensation for entire LUE. numbness/ tingling noted on L side of the face Muscle Tone Muscle Tone WNL No Muscle Tone Location Left Upper Extremity Type of Tone Hypotonicity Severity of Tone Mild Other Assessments Other Other Assessments +ve Randolph sign on L no vision field deficits M6 PT-IP Treatment Start: 04/19/20 15:01 Freq: NEEDED Status: Active Protocol: Document 04/20/20 08:35 KS (Rec: 04/20/20 10:25 KS [id number]) Physical Therapy Treatment Exercises Exercises Wrist ROM,Hand ROM Education Education Provided Safety Other Treatments Other Treatment Performed AROM therex wrist and fingers M7 PT-IP Assessment and Plan Start: 04/19/20 15:01 Freq: NEEDED Status: Active Protocol: Document 04/20/20 08:35 KS (Rec: 04/20/20 10:25 KS [id number]) PT Summary Assessment and Plan Potential Rehabilitation Potential Good Summary Impairments ROM,Strength,Sensation Progress Towards Goals Progressing Toward Goals Assessment Summary Pt is mobilizing independently and ambulating independently in room. Pt SBA for ambulation and stair training and was able to manage her own IV pole during ambulation. Pt ambulated 80 ft SBA w/ L foot drop which is normal for her. She also completed 3 steps w/ L hand rail SBA w/ good safety awareness. Pt states she will have outpatient rehab upon return to [place]. Goals Bed Mobility Goal Independent Transfer Goal Independent Gait Goal Independent Other Goals complete HEP independently Days to Meet Goals 3 Frequency of Treatment Frequency Of Treatment Once a Day Treatment Plan Physical Therapy Treatment Plan Therapeutic Exercise,Discharge Planning,Neuromuscular Re-ed Recommendations To Nursing Amount of Assist Needed Standby Assistance Discharge Recommendations PT Discharge Recommendations Home with Assistance, Outpatient PT Other Discharge Recommendations Pt lives in [place]. Discussed with Dr. Kelly that Pt's current plan is to drive back to [place] and participate outpatient rehab with speech, OT, and PT there. Transportation Needs at Discharge Private Vehicle
--- NOTE | 2020-04-20 08:45 | CM.DANOTE ---
DCP: Case received, EMR reviewed and met with patient. Introduced self and role. Was able to meet with patient and obtain information regarding her baseline activity level, as well as living situation. , Dwight, was also present in room. DCP assessment completed with information currently available. Patient is a 69 year old female who admitted yesterday morning to the care of the hospitalist team. PCP: Dr. Pearl Payer: confirmed: Medicare Advantage. Patient came to the hospital via family vehicle secondary to having symptoms of tingling and numbness to her left hand. Patient had MRI yesterday, which noted acute lunar infarcts. Met with patient in her room. She is alert and oriented, pleasant. She was sitting up on the side of the bed. also present. They both reside in [place], but are here visiting in their RV. Patient is ambulatory. She stated, the only problem that I have had is with my hand, I just have to keep exercising it. Asked her about outpatient P.T, and patient mentioned, I don't think I really need it, I am continuing with the hand exercises. Patient and her are originally from [place]. P: DCP to continue to follow. Patient should be able to go home when she is medically stable. Laura Tarango, RN/Loan Coordinator
[2020-04-20] MEDS: APIXABAN 5 MG TABLET PO (09:20)
--- NOTE | 2020-04-20 09:34 | OT.IP.EVAL ---
Past Medical History (Last Reviewed 04/19/20 @ 17:15 by Marjorie Kelly DO) Foot drop, left foot (Acute) Hyperlipidemia (Acute) Hypertension (Acute) Surgical History (Last Reviewed 04/19/20 @ 17:15 by Marjorie Kelly DO) Hx of appendectomy (Acute) Occupational Therapy Inpatient Evaluation/Re-Eval M1 PT/OT-IP Prior Functional Status Start: 04/20/20 12:30 Freq: NEEDED Status: Active Protocol: Document 04/20/20 09:34 [facility] (Rec: 04/20/20 12:57 [facility] [id number]) Medical Review Prior Functional Status Medical History Reviewed Yes Diet/Fluid Consistency Regular Communication independent Mobility and Gait independent at baseline with mild L foot drop Activities of Daily Living and IADL's independent at baseline Social History Household Members spouse Living Arrangements RV Additional Social History Comment She is visiting from [place] and drove here with her and RV M2 OT-IP Current Condition Start: 04/20/20 12:30 Freq: Status: Active Protocol: Document 04/20/20 09:34 [facility] (Rec: 04/20/20 12:57 [facility] [id number]) Occupational Therapy Current Condition Current Condition Evaluation Date 04/20/20 Treatment Diagnosis CVA posterior right frontal lobe Diagnosis Onset Date 04/19/20 M3 OT- IP Subjective and Pain Start: 04/20/20 12:30 Freq: Status: Active Protocol: Document 04/20/20 09:34 [facility] (Rec: 04/20/20 12:57 [facility] [id number]) OT- Subjective Occupational Therapy Visit Type Type Initial Evaluation Visit Start Time 09:34 Visit Stop Time 10:16 Total Visit Minutes 42 Occupational Therapy Visit Comments Patient Comments Pt's present for OT eval. Patient/Caregiver Goals TO go home. OT Pain Assessment Pain When Pain Assessed At Rest Pain Present Pain Present Denied Pain M4 OT- IP ADL's Start: 04/20/20 12:30 Freq: Status: Active Protocol: Document 04/20/20 09:34 [facility] (Rec: 04/20/20 12:57 [facility] [id number]) OT [id number]-[id number] General Evaluation Self-Feeding Ability Independent Comments OT Self-Feeding Comments Pt depending on right hand to assist more to open items for FMS. OT ADL-Grooming Comments OT Grooming Comments Pt already performed earlier. OT ADL-Dressing General Eval Lower Body Dressing Ability Standby Assistance,Maximum Assistance Comments OT Dressing Comments MAX A assist needing if incorporating use of left hand , otherwise pt mostly using right hand and mainly just left hand just enough to initially hold sock open to get over her toes. OT ADL-Toileting Comments OT Toileting Comments Pt not having to use the toilet at this time. OT ADL-Bathing Comments OT Bathing Comments NOt at this time. Suggested to have pt's present initially. M5 OT- IP IADL's Start: 04/20/20 12:30 Freq: Status: Active Protocol: Document 04/20/20 09:34 [facility] (Rec: 04/20/20 12:57 [facility] [id number]) OT-Instrumental Activities of Daily Living Home Safety Awareness Awareness of Need for Assistance at Home Good Awareness Ability to Problem Solve Emergency Able to Problem Solve Situations Medication Management Medication Management Comments Suggested for to provide supervision initially . Money Management Money Management Comments Suggested for to provide supervision initially . Meal Preparation Meal Preparation Comments Suggested for to provide supervision initially and assist as needed. Assembler Product Assembler Product Caregiver Provides Assist Driving Driving Comments See below. Pt states at this time does not feel that she will drive due to poor coordination of left hand at this time. M6 OT- IP Functional Cognition Start: 04/20/20 12:30 Freq: Status: Active Protocol: Document 04/20/20 09:34 [facility] (Rec: 04/20/20 12:57 [facility] [id number]) Cognitive Factors Limiting Selfcare Function Cognitive Ability Level of Alertness Alert Patient Orientation Name,Age,Birthday,Month,Date, Year,Day of Week,Place, Situation Attention Span Ability Capable of Focused Attention, Capable of Sustained Attention Ability to Follow Commands Able to Follow Multi-Step Commands Safety Awareness No Deficits Noted Problem Solving Ability No deficits Noted Cognitive Comments Cognitive Assessment Comments Pt able to accurately answer all home safety situations. Pt already able to call her insurance this morning for medication coverage. Pt scored 78 seconds on Benicia Making Part B which implies normal but not perfect score. A score on 65 seconds or less indicates a perfect score. This assessment looks at visual attention, task switching, mental flexibility, speed of processing, and executive thinking. OT- Vision and Hearing OT- Hearing Assessment OT- Hearing Assessment WFL OT- Vision Assessment Visual Acuity WFL M7 OT- IP Mobility and Balance Start: 07/23/20 12:30 Freq: Status: Active Protocol: Document 04/20/20 09:34 [facility] (Rec: 04/20/20 12:57 [facility] [id number]) OT- Bed Mobility Assessment Supine to Sit Supine to Sit Assist Standby Assistance Sit to Supine Sit to Supine Assist Independent OT-Transfer Assessment Sit to and From Stand Sit to and from Stand Independent Transfers Transfer Ability Independent Technique Transfer Destination Bed,Chair Comments Mobility Comments Independent without device in the room. OT- Balance Assessment Sitting Balance and Reactions Static Sitting Balance Ability Normal Dynamic Sitting Balance Ability Normal Standing Balance and Reactions Static Standing Balance Ability Good M8 OT- IP Objective Assessments Start: 04/20/20 12:30 Freq: Status: Active Protocol: Document 04/20/20 09:34 [facility] (Rec: 04/20/20 12:57 [facility] [id number]) OT Gross Range of Motion Upper Extremity Range of Motion Assessment Right Impaired ROM Impairments RUE decreased at end ROM due to tightness and after stretching with OT and self stretching WFL. OT Strength Upper Extremity Strength Assessment Right Impaired Shoulder 3-/5 to 3/5 Elbow 4-/5 Forearm 3+/5 Wrist 3-/5 Hand 3-/5 to 3/5 OT- Coordination Assessment Upper Extremity Finger to Nose Test Within Functional Limits Comments Coordination Comments Pt unable to pick pulling machine operator one peg for 9 Hole Peg Hand Test with left hand. Pt's right hand 28 seconds which is 10th percentile for her age. Pt states prior to CVA her hands would cramp up especially while knitting. In addition her hands would fist at night sleeping. Educated pt to do weight bearing to right hand on a book to stretch her right wrist flexors. In addition educated pt to stretch while in supine with PVC frame to help stretch her internal rotators. At the end of the session pt able to extend her fingers. OT-Muscle Tone Assessment Muscle Tone WNL No Muscle Tone Location Left Upper Extremity Type of Tone Hypertonicity,Flexor Severity of Tone Mild OT Sensation Assessment Location Left Hand Light Touch Intact/Normal Proprioception (Position) Intact/Normal M9 OT- IP Assessment and Plan Start: 04/20/20 12:30 Freq: Status: Active Protocol: Document 04/20/20 09:34 [facility] (Rec: 04/20/20 12:57 [facility] [id number]) OT Summary Assessment and Plan Potential Rehabilitation Potential Good Analytic Complexity at Evaluation Low Summary OT Impairments Range of Motion,Coordination, Self-Feeding,Grooming,Dressing ,Toileting,Bathing,Toilet Transfers,Shower Transfers, Activity Tolerance Progress Towards Goals Progressing Toward Goals Assessment Summary Pt low complexity and here due to right posterior frontal CVA mainly effecting her fine motor skills of right hand and slightly decreased for executive function mainly for speed for cognition. OT able to educate pt on stretching and to mainly focus on movements on extension for RUE . Pt given PVC frame to help stretch her internal rotators. Pt and pt's has good understanding to provide supervision and assist as needed. Pt looking to go home with when medically cleared. Goals Self-Feeding Goal Independent Grooming Goal Independent Dressing Goal Independent Toileting Goal Independent Bathing Goal Independent Toilet Transfer Goal Independent Shower Transfer Goal Independent OT-Other Goals Goals above with incorporation of LUE for all needs. Pt to independently do PVC frame stretching exercises and weight bearing to help stretch her right UE flexors so more independently able to assist with needs. Days to Meet Goals 20 Frequency of Treatment Frequency Of Treatment Once a Day Treatment Plan OT Treatment Plan ADL Training,Functional Mobility,Neuromuscular Re- education,Patient/Family Education,Discharge Planning Discharge Recommendations OT Discharge Recommendations Home with Assistance Other Discharge Recommendations Outpt OT Transportation Needs at Discharge Private Vehicle
--- NOTE | 2020-04-20 10:09 | P.DS_ITS ---
History of Present Illness History of Present Illness Chief complaint: hit funny bone/hand not working Narrative: Written by myself Dr. 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 The patient reports that yesterday evening she thought she hit her elbow on the table and her funny bone causing numbness and tingling of her left arm and hand. She then noticed her left face also had numbness and tingling with slurring of words which she compares to receiving Novocain at the dentist. The numbness and tingling of her face quickly resolved. She she reports that she then went to bed hoping that this would go away overnight. She awoke with persistent numbness and tingling of left arm and hand with decreased striping machine operator strength. She has no persistent numbness or tingling of her face or slurred speech. She has no other symptoms and denies headache, chest pain, shortness of breath, nausea, vomiting, fever, chills, dysuria, diarrhea or constipation. She is visiting from [place] and drove here with her and RV. She denies any lower extremity swelling or pain. In the emergency department, the patient went to atrial fibrillation for which she endorses occasional fluttering in her chest especially when she drinks wine to the extent that she has cut back and will only have 1 glass at a time. She has no history of atrial fibrillation and is not on blood thinner. She is admitted observation for acute stroke. Discharge Providers Provider Date of admission: 04/19/20 11:33 Discharge Date: 04/20/20 Consults: 04/19/20 12:48 Consult to Discharge Planning Routine Comment: Consult to Occupational Therapy Evaluate & Treat Comment: Physician Instructions: Evaluate and treat Consult to Physical Therapy Evaluate & Treat Comment: Physician Instructions: Evaluate and Treat Consult to Speech Therapy Evaluate & Treat Comment: Physician Instructions: Evaluate and treat 04/20/20 08:04 Consult to Dietitian, Adult Urgent Comment: Reason For Exam: Prediabetic Discharge provider: Marjorie Kelly DO Summary Hospital Course Discharge Diagnosis: 1. Acute right-sided CVA, present on admission. Active. 2. Newly diagnosed paroxysmal atrial fibrillation, likely chronic, present on admission. Stable. 3. Hypertension, chronic, present on admission. Stable. 4. Hyperlipidemia, chronic, present on admission. Presumed stable. 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 1. Acute right-sided CVA, present on admission. Active. 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 Patient has remote history 40+ years ago of left footdrop from unknown cause but possibly CVA. -Cardiovascular risk factors include: hypertension, hyperlipidemia and family history. -NIH score 0. Continued to monitor neurological status frequently. -Initial EKG demonstrated sinus rhythm/bradycardia and repeat EKG demonstrated atrial fibrillation without acute ischemic changes has as ST elevation or depression. Continued to monitor closely on telemetry. Patient remained in sinus rhythm. -Allowed for permissive hypertension x 24 hours to optimize cerebral perfusion. Plan to restart home antihypertensive with losartan 50 mg twice daily tomorrow. Ordered labetalol 10 mg IV every 4 hours for SBP > 220 mmHg or DBP > 110 mm Hg[address] -CT brain without contrast did not demonstrate noted acute intracranial hemorrhage. Noted, mild white matter changes are more prominent on the right. -MR stroke protocol demonstrated small cluster of acute lacunar infarcts in the posterior right frontal lobe, no abnormal intracranial mass or mass effect, no suspicious postcontrast enhancement, no intracranial hemorrhage, mild diffuse cerebral volume loss and moderate periventricular, subcortical and subinsular white matter chronic microvascular ischemic change. No cerebral or neck arterial hemodynamic stenoses, occlusions, or aneurysms. -Echocardiogram did not demonstrate embolic source or intraatrial shunt. -Risk stratified with hemoglobin A1c which was 6.0 % indicative of prediabetes and fasting lipid panel which demonstrated fair lipid control with: Total cholesterol 176, triglycerides 262, LDL 78 (goal < 70) and HDL 46. -Received aspirin 324 mg x 1 in ED. Started and continued Eliquis 5 mg twice daily and continued home atorvastatin increased from 20 mg to 40 mg daily at bedtime for stroke prophylaxis. -Continued physical, occupational therapy and speech therapies evaluation and treatment. Speech therapy performed SLUMS which the patient scored a +20/30 indicative of mild cognitive impairment. Physical and occupational therapy sunshine mmended continued outpatient therapy for left striping machine operator weakness. 2. Newly diagnosed paroxysmal atrial fibrillation, likely chronic, present on admission. Active. -Patient presented in sinus rhythm and when to atrial fibrillation while in the ED. Patient endorses intermittent palpitations and a fluttering in her chest over the last 3-4 years. -EKG demonstrated atrial fibrillation without acute ischemic changes such as ST elevation or depression. Continued to monitor closely on telemetry. -Echocardiogram demonstrated normal LV size, wall thickness, wall motion and LV systolic function with EF is 60-65%, mild LA enlargement; otherwise normal chamber sizes, mild MAC with trace associated MR, no source of embolism found, no PFO based on bubble study. -CHADS2 Vasc score 5 indicative high risk of future VTE. Started and continued Eliquis 5 mg twice daily. 3. Hypertension, chronic, present on admission. Stable. -Allowed for permissive hypertension x 24 hours to optimize cerebral perfusion then restarted home losartan 50 mg twice daily. Ordered labetalol 10 mg IV every 4 hours for SBP > 220 mmHg or DBP > 110 mm Hg. 4. Hyperlipidemia, chronic, present on admission. Presumed stable. -Fasting lipid panel demonstrated fair lipid control with: Total cholesterol 176, triglycerides 262, LDL 78 (goal < 70) and HDL 46. -Continued atorvastatin increased from 20 mg to 40 mg daily at bedtime for added lipid control and stroke prevention. Exam Vital Signs (past 8 hours): - 04/20/20 05:56 Temperature 97.1 F L Pulse Rate 56 L Respiratory Rate 16 Blood Pressure 151/90 H Pulse Oximetry 99 Oxygen Delivery Method Room Air Oxygen Flow Rate 0 Narrative Exam Narrative: General: Older female sitting in bed and in no acute distress, well-developed, well-nourished, appropriately interactive. HEENT: Normocephalic, atraumatic. External ears without defect. Pupils equal, round, and reactive to light. Anicteric sclerae, moist conjunctivae, and no lid lag. Oropharynx free of erythema and cobble stoning with moist mucosa. Neck: Supple with full range of motion. No jugular venous distension. No bruits. No lymphadenopathy or thyromegaly. Cardiovascular: Irregularly irregular without murmurs, rubs, or gallops appreciated. Pulmonary: Clear to auscultation bilaterally without crackles, wheezes, or rhonchi. Normal respiratory effort with no use of accessory muscles. Abdomen: Soft, bowel sounds present, nontender, nondistended. No hepatosplenomegaly or masses appreciated. Extremities: No clubbing, cyanosis, or edema. Skin: Normal temperature, turgor, and texture; no rash, ulcers, or subcutaneous nodules appreciated. Neurological: Cranial nerves grossly intact. Normal muscle strength, tone, and bulk in all 4 extremities +4/5. 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 Reflexes, coordination, and sensory function within normal limits. Normal cerebellar function with [id number] and [id number]. No known gait impairment. Psychiatric: Normal mood and affect. Alert and oriented to person, place, and time. Objective Labs Result Diagrams: 04/19/20 10:37 04/19/20 10:37 Labs: Laboratory Results - last 24 hr 04/19/20 04/19/20 04/19/20 10:37 10:37 10:37 WBC 7.5 RBC 4.57 Hgb 13.3 Hct 40.3 MCV 88.3 MCH 29.0 MCHC 32.9 RDW 14.2 Plt Count 186 Neut % (Auto) 62.9 Lymph % (Auto) 27.4 [place] % (Auto) 7.7 Eos % (Auto) 1.2 L Baso % (Auto) 0.8 Neut # (Auto) 4800 Lymph # (Auto) 2100 [place] # (Auto) 600 Eos # (Auto) 100 Baso # (Auto) 100 PT 10.6 INR 0.9 APTT 29 Sodium 139 Potassium 4.7 Chloride 109 H Carbon Dioxide 26 BUN 25 H Creatinine 0.90 Estimated GFR > 60.0 BUN/Creatinine Ratio 27.8 H Glucose 98 Hemoglobin A1c Calcium 9.6 Total Bilirubin 0.3 AST 41 H ALT 58 H Alkaline Phosphatase 74 Total Creatine Kinase 160 H CK-MB (CK-2) 3.55 H CK-MB (CK-2) Rel Index 2.2 Troponin I < 0.012 Total Protein 6.9 Albumin 4.1 Globulin 2.8 Albumin/Globulin Ratio 1.5 Triglycerides Cholesterol LDL Cholesterol, Calc HDL Cholesterol TSH Free T4 Urine Color Urine Appearance Urine pH Ur Specific [place] Urine Protein Urine Glucose (UA) Urine Ketones Urine Occult Blood Urine Nitrate Urine Bilirubin Urine Urobilinogen Ur Leukocyte Esterase Urine RBC Urine WBC Ur Squamous Epith Cells Urine Bacteria Ur Culture Indicated? U Opiates 300ng/mL cut Ur Oxycodone Screen Urine Methadone Screen Ur Barbiturates Screen U Tricyclic Antidepress Ur Phencyclidine Scrn Ur Amphetamines Screen U Methamphetamines Scrn Ur MDMA Scrn (Ecstasy) U Benzodiazepines Scrn Urine Cocaine Screen U Marijuana (THC) Screen COVID-19 PCR 04/19/20 04/19/20 04/19/20 10:37 11:19 11:50 WBC RBC Hgb Hct MCV MCH MCHC RDW Plt Count Neut % (Auto) Lymph % (Auto) [place] % (Auto) Eos % (Auto) Baso % (Auto) Neut # (Auto) Lymph # (Auto) [place] # (Auto) Eos # (Auto) Baso # (Auto) PT INR APTT Sodium Potassium Chloride Carbon Dioxide BUN Creatinine Estimated GFR BUN/Creatinine Ratio Glucose Hemoglobin A1c Calcium Total Bilirubin AST ALT Alkaline Phosphatase Total Creatine Kinase CK-MB (CK-2) CK-MB (CK-2) Rel Index Troponin I Total Protein Albumin Globulin Albumin/Globulin Ratio Triglycerides Cholesterol LDL Cholesterol, Calc HDL Cholesterol TSH 0.41 L Free T4 0.80 Urine Color Straw Urine Appearance Clear Urine pH 6.5 Ur Specific [place] <=1.005 Urine Protein Negative Urine Glucose (UA) Negative Urine Ketones Negative Urine Occult Blood Negative Urine Nitrate Negative Urine Bilirubin Negative Urine Urobilinogen 0.2 Ur Leukocyte Esterase Negative Urine RBC 0-1/hpf Urine WBC 0-1/hpf Ur Squamous Epith Cells 0-1 /hpf Urine Bacteria Few (2-10) H Ur Culture Indicated? Cult not indicated U Opiates 300ng/mL cut Negative Ur Oxycodone Screen Negative Urine Methadone Screen Negative Ur Barbiturates Screen Negative U Tricyclic Antidepress Negative Ur Phencyclidine Scrn Negative Ur Amphetamines Screen Negative U Methamphetamines Scrn Negative Ur MDMA Scrn (Ecstasy) Negative U Benzodiazepines Scrn Negative Urine Cocaine Screen Negative U Marijuana (THC) Screen Negative COVID-19 PCR 04/19/20 04/20/20 04/20/20 12:20 05:45 05:45 WBC RBC Hgb Hct MCV MCH MCHC RDW Plt Count Neut % (Auto) Lymph % (Auto) [place] % (Auto) Eos % (Auto) Baso % (Auto) Neut # (Auto) Lymph # (Auto) [place] # (Auto) Eos # (Auto) Baso # (Auto) PT INR APTT Sodium Potassium Chloride Carbon Dioxide BUN Creatinine Estimated GFR BUN/Creatinine Ratio Glucose Hemoglobin A1c 6.0 Calcium Total Bilirubin AST ALT Alkaline Phosphatase Total Creatine Kinase CK-MB (CK-2) CK-MB (CK-2) Rel Index Troponin I Total Protein Albumin Globulin Albumin/Globulin Ratio Triglycerides 262 H Cholesterol 176 LDL Cholesterol, Calc 78 HDL Cholesterol 46 TSH Free T4 Urine Color Urine Appearance Urine pH Ur Specific [place] Urine Protein Urine Glucose (UA) Urine Ketones Urine Occult Blood Urine Nitrate Urine Bilirubin Urine Urobilinogen Ur Leukocyte Esterase Urine RBC Urine WBC Ur Squamous Epith Cells Urine Bacteria Ur Culture Indicated? U Opiates 300ng/mL cut Ur Oxycodone Screen Urine Methadone Screen Ur Barbiturates Screen U Tricyclic Antidepress Ur Phencyclidine Scrn Ur Amphetamines Screen U Methamphetamines Scrn Ur MDMA Scrn (Ecstasy) U Benzodiazepines Scrn Urine Cocaine Screen U Marijuana (THC) Screen COVID-19 PCR Negative Discharge Plan Discharge Plan Patient Disposition: Home Discharge comment: You are being discharged home. You have had a right sided stroke. You were found to have paroxysmal atrial fibrillation and have been started on a blood thinner called Eliquis 5 mg twice daily to prevent blood sharon ts and future stroke. Your atorvastatin has been increased from 20 mg to 40 mg daily at bedtime to help lower bad cholesterol called LDL and further prevent stroke. You are prediabetic and recommend lifestyle modification including: diet and exercise as discussed. Please follow-up with your primary care provider in the next 1-2 weeks regarding your hospitalization. Recommend outpatient physical and occupational therapy and continue exercises for your left hand that were provided to you by physical and occupational therapy. Continue to stimulate your brain with brain exercises. Discharge orders & Medications Prescriptions: New Eliquis 5 mg Tablet 5 mg PO BID Qty: 60 RF: 0 Continued losartan 50 mg Tablet 50 mg PO DAILY RF: 0 Changed atorvastatin 20 mg Tablet 40 mg PO BEDTIME Qty: 0 RF: 0 Diet/Activity/Treatments Diet: Carb-consistent/Diabetic, Low-fat, Low-sodium and Low-cholesterol Activity: Activity as tolerated Visit Report/Discharge Packet Instructions: The Mediterranean Diet and Good Health, DI for Stroke-Ischemic, DI for Atrial Fibrillation, Apixaban, DI for Prediabetes Visit Report Forms: Patient Portal/API, Stroke Signs & Symptoms Quality VTE Deep Vein Thrombosis/Pulmonary Embolism Present on Admission: No
[2020-04-20] MEDS: LOSARTAN 50 MG TABLET PO (11:01)
--- NOTE | 2020-04-20 11:08 | DI.ECHO.S_ITS ---
[facility] +---------+ [facility] +---------+ : : [address] : : : : [phone] : : : : Phone: [phone] Echocardiogram Report + + :Name: FLORI FRANKEL Study Date: 04/20/2020 Height: 65 in : :Hospital Weight: 199 lb : : Gender: Female BSA: 2.0 m2 : :: 1950 Age: 69 yrs BP: 160/98 mmHg: :Reason For Study: CVA, R/O Embolic Source : :Ordering Physician: : :HOSPITALISTTAMY Performed By: Felicia Salazar : :Referring: NELLA CAMARENA : + + Interpretation Summary Sinus rhythm. Heart rate fluctuates between 47 bpm to 58 bpm. Normal LV size, wall thickness, wall motion and LV systolic function. EF is 60-65%. Mild LA enlargement; otherwise normal chamber sizes. Mild MAC with trace associated MR. No source of embolism found. No PFO based on bubble study. No prior study available for comparison. Procedure: A two-dimensional transthoracic echocardiogram with color flow and Doppler was performed. The study quality was technically adequate. The injection was performed through an intravenous line in the left arm. A saline contrast injection was performed to assess for cardiac shunting. The patient was in sinus bradycardia with heart rates between 47-58 bpm during the exam. Left Ventricle: The left ventricle is normal in size and wall thickness. The ejection fraction is estimated to be 60-65%. Diastolic parameters suggest a relaxation abnormality of the left ventricle, consistent with probable normal filling pressures. Right Ventricle: The right ventricle is normal in size and function. Atria: The left atrium is mildly dilated. Right atrial size is normal. There is no Doppler evidence for an interatrial shunt. Injection of contrast documented no interatrial shunt. Mitral Valve: There is mild mitral annular calcification. The mitral valve is normal in structure and function. There is trace mitral regurgitation. Aortic Valve: The aortic valve is trileaflet. The aortic valve opens well. There is no aortic valve stenosis. No aortic regurgitation is present. Tricuspid Valve: The tricuspid valve is normal in structure and function. There is mild tricuspid regurgitation. Right ventricular systolic pressure is estimated to be 27 mmHg plus the clinically estimated CVP which cannot be estimated on this exam. Pulmonic Valve: The pulmonic valve is normal in structure and function. There is trace pulmonic regurgitation. Great Vessels: The aortic root is normal size. The ascending aorta is mildly enlarged. The inferior vena cava was not well visualized. Pericardium/ Pleura There is no pericardial effusion. There is no pleural effusion. MMode/2D Measurements & Calculations LVIDd: 4.5 cm LVOT diam: 2.0 cm LVIDs: 3.1 cm Ao root diam: 3.1 cm FS: 30.5 % asc Aorta Diam: 3.4 cm EPSS: 0.45 cm Ao Arch Diam (Prox Trans): 2.8 cm IVSd: 1.1 cm LVPWd: 0.97 cm LV mckeon. diameter/BSA (cm/m^2): 2.3 LV sys. diameter/BSA (cm/m^2): 1.6 LA A2 area: 23.0 cm2 RA long axis: 5.2 cm LA A4 area: 23.6 cm2 RA area: 18.2 cm2 LA length (vol): 6.4 cm RA vol: 54.5 ml LA vol: 72.2 ml RA : 27.6 ml/m2 LA vol index: 36.6 ml/m2 RVD1 (basal): 3.0 cm TAPSE: 2.4 cm Doppler Measurements & Calculations Ao V2 max: 154.8 cm/sec LVOT Max Zackery: 126.6 cm/sec Ao V2 mean: 98.9 cm/sec LV V1 max P.4 mmHg Ao max P.6 mmHg LV V1 VTI: 27.8 cm Ao mean P.5 mmHg JOE(I,D): 2.8 cm2 Ao V2 VTI: 31.2 cm JOE(V,D): 2.5 cm2 sev ratio: 0.89 JOE indexed to BSA (cm^2/m^2): 1.4 MV E max zackery: 95.5 cm/sec TR max zackery: 257.9 cm/sec MV A max zackery: 63.5 cm/sec TR max P.6 mmHg MV E/A: 1.5 PA V2 max: 77.2 cm/sec Med Peak E' Zackery: 7.0 cm/sec PA V2 mean: 51.1 cm/sec E/E' med: 13.5 PA mean P.2 mmHg Lat Peak E' Zackery: 8.4 cm/sec E/E' lat: 11.4 E/e' average: 12.4 MV dec time: 0.16 sec SV(LVOT): 86.1 ml Electronically signed by: Fe Rosario M.D. on [place] Physician:04/20/2020 03:22 PM
--- NOTE | 2020-04-20 11:41 | DIET.PN ---
Dietary Progress Note Assessment: 69y F admitted for stroke found to have high TGs (262) and preDM (A1c 6.0). Pt lives in [place], drove RV up to [facility]. Pt reports hot weather in [place] so does not walk outside. Pt was using pool regularly pre-covid but pool has been closed. Pt eats mostly unrefined diet but does have a sweet tooth and is good reid. Usual Day: Two meals and one snack per day B: smoothie or yogurt c granola or oatmeal D (4-5pm): meat, pasta, vegetable sometimes homemade cookies or a caramel roll Pt did drink wine regularly but has limited herself to one glass as she feels it brings on heart palpitations. Pts has A1c 6.1 so was listening and participating in conversation. HT: 165.1cm WT: 90.3kg BMI:33.1 Labs: A1c 6.0, TGs 262 Nutrition Diagnosis: altered nutrition related laboratory values (TG, A1c) r/t excessive intake of carbohydrate foods and physical inactivity aeb A1c 6.0 (preDM), TGs 236, pt reports being carbaholic, food recall lists regular consumption of high carb foods (granola, smoothie, oatmeal, pasta, cookies, caramel rolls), and pt having barriers to regular physical activity routine. Interventions: 1. Discussed role of 5-7% weight loss for regulating BG. 2. Discussed meal planning by moderating carb consumption. Pt willing to use stevia and sugar alcohols in some of her baking. Pt willing to not double portion carbs (avoiding corn c potatoes, garlic toast c pasta, being mindful of smoothie ingredients). 3. Collaborated c pt on ways to increase physical activity despite barriers. Pt interested in getting treadmill (had good luck in past) or rowing machine. Pt will start back at pool when able. Suggested pt take regular breaks from knitting to decrease sedentary time. Diet Order: HH/CCD
--- NOTE | 2020-04-20 11:54 | PC.NURSE ---
ECHO COMPLETE. PATIENT STATES NUMBNESS/TINGLING IN LEFT HAND HAS RESOLVED. DENIES SAME TO LEFT CHEEK. 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 PATIENT IS PERFORMING HER HAND EXERCISES. PT/OT HAVE EVALUATED PATIENT. PATIENT STEADY ON FEET, ALERT AND ORIENTED.
== END 2020-04-20 16:08 | disposition home or self-care (01) | DRG 66 ==
LOC: ED 11:23 → AC 11:33
PROVIDERS: Admitting Provider Internal Medicine; Emergency Provider Emergency Medicine; Family Provider Family Medicine; Referring Provider Emergency Medicine; Visit Provider Internal Medicine
DX: I63.81 Other cerebral infarction due to occlusion or stenosis of small artery (principal); I48.0 Paroxysmal atrial fibrillation; R20.2 Paresthesia of skin; I10 Essential (primary) hypertension; E78.5 Hyperlipidemia, unspecified; M21.372 Foot drop, left foot; Z66 Do not resuscitate
CPT/HCPCS: 36415; 70450; 70548; 70553; 80053; 80061; 80305; 81001; 82550; 82553; 83036; 84439; 84443; 84484; 85025; 85610; 85730; 87635; 92523; 93005; 93306; 96360; 97116; 97162; 97165; 97530; 99285; G0378; A9579